=== PATIENT | male | born 1965 | race Caucasian/White ===

== ENCOUNTER 2021-11-01 08:00 | Outpatient (CLI) | payer BC ==
--- NOTE | 2021-11-01 19:20 | XRAY Report ---
PROCEDURE: Finger(s) LT INDICATIONS: LEFT INDEX FINGER LACERATION TECHNIQUE: AP hand, 3 views of the second finger(s) acquired. COMPARISON: None FINDINGS: Bones: No fractures or dislocations. No suspicious bony lesions. Soft tissues: No suspicious soft tissue calcifications. Soft tissue laceration is present at the di stal aspect of the second digit. IMPRESSION: Second digit soft tissue laceration without visualized underlying fracture. Reviewed by: Renetta Paulino MD on 11/01/2021 7:19 PM PDT Approved by: Renetta Paulino MD on 11/01/2021 7:19 PM PDT Station ID: [id number]
== END 2021-11-01 23:59 | disposition home or self-care (01) ==
LOC: DI.S 08:00
PROVIDERS: ATTEND Physician Assistant Medical
DX: S61.211A Laceration without foreign body of left index finger without damage to nail, initial encounter (principal)